=== PATIENT | male | born 1950 | race Caucasian/White ===

== ENCOUNTER 2018-06-21 13:28 | Outpatient (CLI) | payer BC ==
--- NOTE | 2018-06-21 13:50 | RAD ---
EXAM: 2 views of the right hip HISTORY: Bilateral hip pain COMPARISON: None FINDINGS: 2 views of the right hip shows no evidence of acute fracture or dislocation. No degenerativ e changes are seen. No soft tissue swelling is present. IMPRESSION: No evidence of acute osseous abnormality.
--- NOTE | 2018-06-21 13:50 | RAD ---
EXAM: 2 views of the left hip HISTORY: Bilateral hip pain COMPARISON: None FINDINGS: 2 views of the left hip shows no evidence of acute fracture or dislocation. No degenerative changes are seen. No soft tissue swelling is present. IMPRESSION: No evidence of acute osseous abnormality.
== END 2018-06-21 13:29 | disposition home or self-care (01) ==
LOC: BICRAD 13:28
PROVIDERS: ATTEND Internal Medicine
DX: M25.551 Pain in right hip (principal); M25.552 Pain in left hip; M19.90 Unspecified osteoarthritis, unspecified site

== ENCOUNTER 2018-06-29 09:22 | Inpatient (IN) | payer MEDICARE ==
--- NOTE | 2018-06-29 09:50 | CT ---
Exam: HEAD CT WITHOUT CONTRAST: HISTORY: Level 2 stroke alert. Left sided numbness, onset 10 a.m. yesterday. COMPARISON: 07-01-14 FINDINGS: Hemorrhage: No intraparenchymal hemorrhage or extra-axial hematoma. Brain parenchyma: Cortical linn-white matter differentiation is preserved. No mass effect or midline shift. Basilar cisterns are patent Ventricular system: Ventricles and sulci are patent and symmetric. Calvarium: Intact. Sinuses and mastoid air cells: Adequate aeration. IMPRESSION: No acute intracranial process. Results study discussed with Dr. Koch 06/29/2018 at 9:50 AM Code CR Transcribed Date/Time: 06/29/2018 10:05 AM
[2018-06-29 09:58] LABS: #Basophils 0.1 thou/uL (0.0-0.2); #Eosinphils 0.2 thou/uL (0.0-0.7); #Lymphocytes 1.5 thou/uL (1.20-3.40); #Monocytes 0.7 thou/uL (0.11-0.59); #Neutrophils 3.8 thou/uL (1.40-6.50); %Basophils 0.9 % (0.0-1.0); %Eosinophils 3.6 % (0.0-10.0); %Neutrophils 60.5 % (42.0-75.0); Hemoglobin 16.4 g/dL (14.0-18.0); Mean Corpuscular HGB CONC 32.9 g/dL (32.0-36.0); Mean Corpuscular Hemoglobin 30.1 pg (27.0-31.0); Mean Corpuscular Volume 91.4 fL (78.0-98.0); Mean Platelet Volume 9.5 fL (7.4-10.4); Platelet Count 164 thou/uL (130-400); RBC Distribution Width 12.5 % (11.5-14.5); Red Blood Cell (RBC) Count 5.46 mill/uL (4.70-6.10); White Blood Cell (WBC) Count 6.2 thou/uL (4.8-10.8)
[2018-06-29 10:04] LABS: PTT 27.8 SEC (22.9-36.1); Prothrombin Time 13.7 SEC (12.0-14.7)
[2018-06-29 10:19] LABS: ALT (SGPT) 45 U/L (8-55); AST (SGOT) 38 U/L (5-34); Albumin 4.2 g/dL (3.4-4.8); Alkaline Phosphatase 53 U/L (40-150); Anion Gap 14 mmol/L (10-20); BUN (Urea Nitrogen) 12 mg/dL (8.4-25.7); Calc. Creatinine Clearance 0 mL/min (70-130); Calcium 9.5 mg/dL (7.8-10.44); Carbon Dioxide 28 mmol/L (23-31); Chloride 102 mmol/L (98-107); Estimated GFR-MDRD 71; Globulin 2.7 g/dL (2.4-3.5); Glucose 159 mg/dL (80-115); Potassium 3.9 mmol/L (3.5-5.1); Protein, Total 6.9 g/dL (5.8-8.1); Sodium 140 mmol/L (136-145)
[2018-06-29] MEDS ORDERED: Aspirin Chewable 81 MG TAB ONE (10:57)
[2018-06-29] MEDS ORDERED: HumaLOG 300 UNITS/3 ML VIAL SC PRN (12:40)
[2018-06-29] MEDS ORDERED: Bisacodyl 5 MG TAB PO PRN (12:40)
[2018-06-29] MEDS ORDERED: Dextrose 50% Abboject 50 ML SYRINGE SLOW IVP PRN (12:40)
[2018-06-29] MEDS ORDERED: Dextrose 5% in Water 1,000 ML IV PRN (12:40)
[2018-06-29] MEDS ORDERED: Lorazepam 2 MG/ML VIAL SLOW IVP PRN (12:54)
--- NOTE | 2018-06-29 13:24 | HP ---
PRIMARY CARE PROVIDER: Dr. Claudia Shane. CHIEF COMPLAINT: Left-sided numbness. HISTORY OF PRESENT ILLNESS: Mr. Ibanez is a pleasant 67-year-old left-handed gentleman, who was seen at [facility] on June 292018. Yesterday around 10 a.m., he developed left-sided numbness. He reports numbness over both left upper and left lower extremities. He was unable to walk. He reports that his gait was shuffling, so that he did not fall. He tried writing and could not recognize his handwriting. He denies any change in his speech. 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 He denies any nausea or vomiting. He denies any chest pain, shortness of breath, fevers, or chills. REVIEW OF SYSTEMS: All other systems reviewed and found to be negative. PAST MEDICAL HISTORY: Diabetes mellitus, type 2; Mohan palsy; dyslipidemia; hypertension. SURGICAL HISTORY: Hemorrhoid surgery. SOCIAL HISTORY: The patient denies tobacco use, alcohol use, or recreational drug use. CODE STATUS: I discussed his code status. He is full code. FAMILY HISTORY: Significant for malignancy in his mother. No family history of cerebrovascular accident. ALLERGIES: NO KNOWN ALLERGIES. CURRENT MEDICATIONS: 1. Metoprolol succinate 200 mg at bedtime. 2. Metformin 500 mg two times a day. 3. Lasix 20 mg daily. 4. Lisinopril 40 mg daily. 5. Aspirin 81 mg daily. 6. Amlodipine 5 mg at bedtime. 7. Tamsulosin 0.4 mg at bedtime. PHYSICAL EXAMINATION: GENERAL: On examination, Mr. Ibanez is awake and alert, not in acute distress. VITAL SIGNS: Temperature is 99.3 degrees Fahrenheit, blood pressure 151/94, pulse 81, respiratory rate 17, and oxygen saturations 98% on room air. EYES: No scleral icterus, no conjunctival pallor. ENT: Moist mucosal membranes. No oropharyngeal erythema or exudates. NECK: Supple, nontender, trachea is midline. RESPIRATORY: Accessory muscles of breathing are not active. Chest wall movements are symmetric bilaterally. Lungs are clear to auscultation without wheeze, rhonchi, or crepitations. CARDIOVASCULAR: S1 and S2 are heard, regular. Peripheral pulses palpable. No carotid bruit. No pericardial rub. ABDOMEN: Soft, nontender, bowel sounds heard. NEUROLOGIC: Cranial nerves 2 through 12 are intact. He has diminished sensation over the left upper and lower extremities, normal sensation in the right upper and lower extremities. Power is 5/5 in all four extremities. Deep tendon reflexes are 2+. Plantar reflex downgoing on the right, equivocal on the left. MUSCULOSKELETAL: Power is 5/5 in all four extremities. SKIN: No rashes or subcutaneous nodules. LYMPHATIC: No cervical lymphadenopathy. PSYCHIATRIC: Normal mood, normal affect, the patient is oriented to person, place, and time. LABORATORY DATA: Mr. Ibanez's labs and investigations were reviewed. He has an unremarkable CBC, INR 1.0, slightly elevated AST of 38, otherwise unremarkable comprehensive metabolic profile. He also had noncontrast CT scan of the brain, which did not show any acute intracranial abnormality. ASSESSMENT AND PLAN: Mr. Ibanez is a pleasant 67-year-old gentleman, who was seen at [facility] on June 29, 2018. His problem list includes: 1. Left-sided numbness: Mr. Ibanez is presenting with symptoms suggestive of stroke. He is left-hand dominant. He will be admitted to the hospital for further workup including MRI brain, carotid Dopplers, and 2D echocardiogram. We will switch him to Aggrenox for now and await Neurology Service's opinion. 2. Diabetes mellitus, type 2: We will start Accu-Cheks and insulin sliding scale. 3. Dyslipidemia: We will continue statin. 4. Hypertension: We will monitor vital signs and titrate antihypertensives as needed. Many thanks for allowing me to participate in your patient's care. Please feel free to contact me with any questions or concerns. LEVEL OF RISK: Moderate. LEVEL OF COMPLEXITY: Moderate. Job ID: [id number] MTDD
[2018-06-29 13:28] LABS: Troponin I Less than 0.010 ng/mL (< 0.028)
--- NOTE | 2018-06-29 15:25 | ULT ---
BILATERAL CAROTID DUPLEX ULTRASOUND: HISTORY: CVA TECHNIQUE: Grayscale, color-flow and spectral Doppler ultrasound imaging of the extracranial carotid artery syst ems was performed bilaterally. FINDINGS: No significant plaque formation or intimal wall thickening is seen. The peak systolic velocity in the right ICA measures 53 cm/s. The peak systolic velocity in the left ICA measures 57 cm/s. Vertebral flow: antegrade, bilaterally. . IMPRESSION: No hemodynamically significant stenosis of Both ICAs.
[2018-06-29 16:03] LABS: Troponin I Less than 0.010 ng/mL (< 0.028)
[2018-06-29 18:05] VITALS: BMI 32.2
[2018-06-29] MEDS ORDERED: Naproxen 500 MG TAB PO PRN (19:12)
[2018-06-29] MEDS: Aggrenox 200-25mg CAP PO SCH (21:33)
[2018-06-29] MEDS: Atorvastatin Calcium 40 MG TAB PO SCH (21:38)
[2018-06-29] MEDS: Polyethylene Glycol 3350 17 GM Packet PO SCH (21:38)
[2018-06-30 05:17] LABS: #Basophils 0.1 thou/uL (0.0-0.2); #Eosinphils 0.2 thou/uL (0.0-0.7); #Lymphocytes 2.3 thou/uL (1.20-3.40); #Monocytes 0.9 thou/uL (0.11-0.59); #Neutrophils 4.2 thou/uL (1.40-6.50); %Eosinophils 2.9 % (0.0-10.0); %Lymphocytes 29.5 % (21.0-51.0); %Monocytes 12.1 % (0.0-10.0); %Neutrophils 54.4 % (42.0-75.0); Hemoglobin 15.6 g/dL (14.0-18.0); Mean Corpuscular HGB CONC 33.2 g/dL (32.0-36.0); Mean Corpuscular Hemoglobin 30.4 pg (27.0-31.0); Mean Corpuscular Volume 91.6 fL (78.0-98.0); Mean Platelet Volume 9.2 fL (7.4-10.4); Platelet Count 158 thou/uL (130-400); RBC Distribution Width 12.3 % (11.5-14.5); Red Blood Cell (RBC) Count 5.13 mill/uL (4.70-6.10); White Blood Cell (WBC) Count 7.8 thou/uL (4.8-10.8)
[2018-06-30 05:57] LABS: Anion Gap 11 mmol/L (10-20); BUN (Urea Nitrogen) 13 mg/dL (8.4-25.7); Calc. Creatinine Clearance 123 mL/min (70-130); Calcium 9.1 mg/dL (7.8-10.44); Carbon Dioxide 30 mmol/L (23-31); Cardiac Risk 5.7 (Less than 4.5); Chloride 103 mmol/L (98-107); Cholesterol 204 mg/dl (< 200 Desired); Estimated GFR-MDRD 77; Glucose 121 mg/dL (80-115); HDL Cholesterol 36 mg/dL (>60 Neg Risk); LDL Cholesterol, Calculated 138 mg/dL; Potassium 3.9 mmol/L (3.5-5.1); Sodium 140 mmol/L (136-145); Triglycerides 148 mg/dL (Less than 150)
[2018-06-30] MEDS ORDERED: ALPRAZolam 0.5 MG TAB PO PRN (08:14)
[2018-06-30] MEDS: Furosemide 40 MG TAB PO SCH (09:47)
[2018-06-30] MEDS: metFORMIN 500 MG TAB PO SCH ×2 (09:47→19:39)
[2018-06-30] MEDS: Aspirin 81 mg Enteric Coated Tablet PO SCH (09:47)
[2018-06-30] MEDS: Lisinopril 20 MG TAB PO SCH (09:47)
[2018-06-30] MEDS: Enoxaparin Sodium 40 MG/0.4 ML SYRINGE SC SCH (09:48)
[2018-06-30] MEDS: Amlodipine 5 MG TAB PO SCH (09:49)
[2018-06-30] MEDS: Aggrenox 200-25mg CAP PO SCH (09:50)
[2018-06-30] MEDS: Multivit, Chewable SF 1 TAB PO SCH (10:23)
--- NOTE | 2018-06-30 11:52 | MRI ---
EXAM: MRI Brain WO Con PROVIDED CLINICAL HISTORY: Decreased strength in left arm and leg. Left-sided facial droop. COMPARISON: CT head on 06/29/2018 FINDINGS: There is a T2-weighted signal abnormality seen within the superior aspect of the right basal ganglia which does demonstrate restricted diffusion and is compatible with an acute lacunar infarction. No additional acute infarction is seen. There are ill-defined signal abnormalities within the left cerebellar hemisphere, but this has the ap pearance of artifact related to phase encoding secondary to pulsations within the venous sinus. No additional signal abnormalities are appreciated. Mild cerebral and cerebellar volume loss are present . The ventricular system is normal in size, shape, and position for the degree of sulcal atrophy. The septum pellucidum and third ventricle are in the midline. The right vertebral artery is smaller in caliber than the left vertebral artery and may terminate in PICA. There is mass effect on the midbrain secondary to tortuosity of the distal left vertebral artery. Appropriate flow voids are otherwise demonstrated at the base of the brain. The orbits, paranasal sinuses, and skull base demonstrate a normal MRI appearance. IMPRESSION: Acute lacunar infarction superior aspect right basal ganglia.
--- NOTE | 2018-06-30 12:11 | MRI ---
MRI CERVICAL SPINE WITHOUT CONTRAST: INDICATIONS: Left arm weakness. TECHNIQUE: Multiplanar, multisequential imaging of the cervical spine obtained. FINDINGS: The cervical vertebrae maintain height and alignment. Moderate degenerative changes are noted. Ante rior osteophytes are prominent throughout the cervical spine, most pronounced at the C4, C5, C6, and C7 levels. The disk space narrowing is most prominent at C5-C6 and C6-C7. At C2-C3, no significant abnormality. At C3-C4, mild posterior disk bulge and spondylosis effaces the anterior subarachnoid space and abuts the cord. Mild foraminal encroachment bilaterally due to facet and uncinate hypertrophy. At C4-C5, slight anterolisthesis. Posterior disk bulge and spondylosis mildly efface the anterior willams barachnoid space. Right foraminal stenosis due to facet and uncinate hypertrophy. At C5-C6, mild disk bulge and spondylosis flatten the thecal sac and mildly efface the anterior subar achnoid space. Mild left foraminal narrowing due to facet and uncinate hypertrophy. At C6-C7, mild disk bulge and spondylosis flatten the thecal sac and mildly efface the anterior subar achnoid space. No evidence of significant foraminal stenosis or encroachment. At C7-T1, mild disk bulge and spondylosis. The anterior subarachnoid space is well maintained. The foramina appear patent. Cervical cord signal appears normal. IMPRESSION: There are degenerative changes of the cervical spine, as described above. Posterior disk bulge and s pondylosis efface the anterior subarachnoid space from C3 through C7, as described. POS: [facility]
--- NOTE | 2018-06-30 12:13 | PDOC.PN ---
- Subjective Encounter Start Date: 06/30/18 Encounter Start Time: 08:15 CC; LUE NUMBNESS AND WEAKNESS HPI; 67 MALE WITH HTN DM HLD WHO COMES FOR NUMBNESS AND WEAKNESS OF LEFT UPPER EXTREMITY. SUBJECTIVE; PATIENT SEE AND EVAL. HE REFERS NO FULL RECOVERY OF LEFT HAND MOTOR FUNCTION. PER NURSE, NO OTHER ACUTE EVENTS ROS; ALL SYSTEMS ARE REVIEWED AND NEGATIVE EXCEPT FOR THE ONES MENTIONED ABOVE. - Objective Resuscitation Status - Order Detail: 06/29/18 12:40 Resuscitation Status Routine Resuscitation Status: FULL: Full Resuscitation Discussed with: patient MAR Reviewed: Yes Vital Signs & Weight: Vital Signs (12 hours) Temp Pulse Resp BP BP Pulse Ox 06/30/18 11:57 98.7 F 80 18 159/113 H 93 L 06/30/18 09:49 77 149/93 H 06/30/18 09:47 142/93 H 06/30/18 08:45 97 06/30/18 08:00 98.0 F 77 16 142/93 H 97 06/30/18 04:00 98.1 F 79 16 140/94 H 95 Weight Weight 257 lb 15.053 oz I&O: 06/29/18 06/30/18 07/01/18 06:59 06:59 06:59 Intake Total 800 Balance 800 Result Diagrams: 06/30/18 05:04 06/30/18 05:03 Additional Labs: Accuchecks 06/30/18 06/29/18 10:47 20:46 POC Glucose 140 H 90 Radiology Reviewed by me: Yes EKG Reviewed by me: Yes Phys Exam - Physical Examination HEENT: PERRLA, moist MMs, sclera anicteric, oral pharynx no lesions Neck: no nodes, supple, full ROM Respiratory: no wheezing, no rales, no rhonchi, clear to auscultation bilateral Cardiovascular: RRR, no significant murmur, no rub Gastrointestinal: soft, non-tender, no distention, positive bowel sounds Musculoskeletal: no edema, pulses present Neurological: normal sensation, moves all 4 limbs LEFT HAND FINE MOTOR FUNCTION IS IMPAIRED. Psychiatric: normal affect, A&O x 3 Skin: no rash, normal turgor, cap refill <2 seconds Dx/Plan (1) Ischemic stroke Code(s): I63.9 - CEREBRAL INFARCTION, UNSPECIFIED Status: Acute Plan: RIGHT BASAL GANGLIA ACUTE ISCHEMIC STROKE WITH LUE WEAKNESS. CONTINUE STROKE PROTOCOL. LEFT SIDE DOMINANT. CONTINUE ASA AND AGGRENOX. (2) Essential hypertension Code(s): I10 - ESSENTIAL (PRIMARY) HYPERTENSION Status: Chronic Plan: TITRATE MEDS TO GOAL (3) DM type 2 (diabetes mellitus, type 2) Status: Chronic (4) Dyslipidemia Code(s): E78.5 - HYPERLIPIDEMIA, UNSPECIFIED Status: Chronic Plan: CONTINUE STATIN (5) Obesity (BMI 30-39.9) Code(s): E66.9 - OBESITY, UNSPECIFIED Status: Chronic Plan: WEIGHT LOSS RECOMMENDED - Plan cont current plan of care CONTINUE STROKE PROTOCOL. LEFT HAND DOMINANT. CONTINUE AGGRENOX AND ASA DUE TO PRIOR ASA ONLY. BP CONTROL, GLUCOSE CONTROL, STATIN. CODE; FULL CORE; LOVENOX DISP; STROKE UNIT PROG; FAIR CLINICAL STATUS; GUARDED EXPECTED DISCHARGE; IN THE NEXT 24 TO 48 HOURS TOTAL TIME SPENT; 34 MINUTES DATE OF SERVICE; 06/30/2018
[2018-06-30] MEDS: Acetaminophen 325 MG TAB PO PRN (13:48)
[2018-06-30] MEDS ORDERED: Clopidogrel Bisulfate 75 MG TAB PO SCH (16:00)
[2018-07-01] MEDS: Atorvastatin Calcium 40 MG TAB PO SCH ×2 (01:37→21:13)
[2018-07-01] MEDS: Aggrenox 200-25mg CAP PO SCH ×3 (01:37→21:13)
[2018-07-01] MEDS: Polyethylene Glycol 3350 17 GM Packet PO SCH ×2 (01:37→21:12)
[2018-07-01 04:55] LABS: Hemoglobin 16.2 g/dL (14.0-18.0); Mean Corpuscular HGB CONC 32.7 g/dL (32.0-36.0); Mean Corpuscular Hemoglobin 29.9 pg (27.0-31.0); Mean Corpuscular Volume 91.4 fL (78.0-98.0); Mean Platelet Volume 9.3 fL (7.4-10.4); Platelet Count 169 thou/uL (130-400); RBC Distribution Width 12.5 % (11.5-14.5); Red Blood Cell (RBC) Count 5.42 mill/uL (4.70-6.10); White Blood Cell (WBC) Count 7.7 thou/uL (4.8-10.8)
[2018-07-01 05:23] LABS: Anion Gap 15 mmol/L (10-20); BUN (Urea Nitrogen) 14 mg/dL (8.4-25.7); Calc. Creatinine Clearance 118 mL/min (70-130); Calcium 9.5 mg/dL (7.8-10.44); Carbon Dioxide 27 mmol/L (23-31); Chloride 102 mmol/L (98-107); Estimated GFR-MDRD 73; Glucose 138 mg/dL (80-115); Potassium 3.9 mmol/L (3.5-5.1); Sodium 140 mmol/L (136-145)
[2018-07-01] MEDS: Acetaminophen 325 MG TAB PO PRN ×2 (08:34→13:08)
[2018-07-01] MEDS: Furosemide 40 MG TAB PO SCH (08:34)
[2018-07-01] MEDS: Multivit, Chewable SF 1 TAB PO SCH (08:34)
[2018-07-01] MEDS: Clopidogrel Bisulfate 75 MG TAB PO SCH (08:35)
[2018-07-01] MEDS: Aspirin 81 mg Enteric Coated Tablet PO SCH (08:35)
[2018-07-01] MEDS: metFORMIN 500 MG TAB PO SCH ×2 (08:35→17:48)
[2018-07-01] MEDS: Amlodipine 5 MG TAB PO SCH (08:35)
[2018-07-01] MEDS: Lisinopril 20 MG TAB PO SCH (08:35)
[2018-07-01] MEDS: Enoxaparin Sodium 40 MG/0.4 ML SYRINGE SC SCH (08:36)
[2018-07-01] MEDS ORDERED: Clopidogrel Bisulfate 75 MG TAB PO SCH (09:00)
--- NOTE | 2018-07-01 18:44 | PDOC.EVN ---
Event Note - Event Note Event Note: Patient does not feel ready to go home. Family members disagree with disposition because the patient has stairs in the house. They request evaluation for inpatient rehabilitation. Discharge was discontinued.
--- NOTE | 2018-07-01 18:56 | DIS ---
DATE OF ADMISSION: 06/29/2018 DATE OF DISCHARGE: 07/01/2018 ADMITTING PHYSICIAN: Dr. Dallas. DISCHARGING PHYSICIAN: Dr. Treviño. PRIMARY CARE PHYSICIAN: Dr. Claudia Shane. ADMITTING DIAGNOSES: 1. Left upper extremity numbness and weakness. 2. Diabetes mellitus type 2. 3. Dyslipidemia. 4. Hypertension. DISCHARGE DIAGNOSES: 1. Acute right basal ganglia lacunar stroke with left upper extremity weakness. 2. Essential hypertension. 3. Diabetes mellitus type 2. 4. Dyslipidemia. 5. Obesity. CONSULTS: None. PROCEDURES: None. SPECIAL IMAGING: Carotid Doppler ultrasound. MRI of the brain and cervical spine. HOSPITAL COURSE: Mr. Black is a 67-year-old male with history of hypertension, hyperlipidemia, and diabetes mellitus type 2, who came to the emergency department for acute onset of left-sided numbness and weakness. He is left-sided dominant. He was admitted for inpatient care of clinical stroke. This was confirmed by MRI showing a right basal ganglia lacunar stroke. He was previously taking aspirin for which he was considered failure to aspirin for primary prevention of stroke. He was given Aggrenox. The patient was evaluated by Physical Therapy and Occupational Therapy. He will be referred to Occupational Therapy 3 times a week for the next 3 to 4 weeks. He is stable for discharge home today. PHYSICAL EXAMINATION: VITAL SIGNS: Blood pressure 177/98 (will be repeated and treated before discharge), pulse 75, respirations 16, oxygen saturation 100% on room air, temperature 97.8 Fahrenheit. GENERAL: He appears in no distress. He is awake, alert, oriented x3. HEAD AND NECK: Pupils are equal, reactive to light. Extraocular muscles intact. Mucous membranes are moist. Neck is supple. CARDIOVASCULAR: Rhythm and rate are regular. No audible murmurs, rubs, or gallops. PULMONARY: Clear to auscultation bilaterally. No wheezes, rhonchi, or crackles. ABDOMEN: Soft, nontender, nondistended, positive bowel sounds. EXTREMITIES: No palpable edema. Pulses are symmetric. Range of motion is intact. SKIN: Normal moist and color. NEUROLOGIC: Cranial nerves 2 through 12 are grossly intact. Deep tendon reflexes are normoreflexic. Muscle tone is normal. 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 LABORATORY ABNORMALITIES: CBC is normal. Chemistry normal except for glucose 138. DISCHARGE DISPOSITION: Home with self-care. DISCHARGE CONDITION: Stable. DISCHARGE DIET: Cardiac and diabetic diet as tolerated. DISCHARGE ACTIVITY: Increased activity as tolerated and avoid falls. DISCHARGE MEDICATIONS: See medical reconciliation for details. DISCHARGE FOLLOWUP: With primary care physician in 1-2 weeks. DISCHARGE INSTRUCTIONS: The patient was instructed to return to the emergency department if symptoms worsen. Take his medications as directed and not to miss any appointments. TIME OF DISCHARGE AND PLANNIN minutes. Job ID: [id number]
--- NOTE | 2018-07-01 23:49 | CON ---
DATE OF CONSULTATION: 07/01/2018 CONSULTING PHYSICIAN: Hospitalist Service. IMPRESSION: 1. Right basal ganglia stroke resulting in left-sided dysmetria. 2. Hypertension. 3. Diabetes. 4. Aspirin failure. PLAN: 1. Aggrenox one twice a day. 2. Outpatient physical therapy. HISTORY OF PRESENT ILLNESS: Mr. Ibanez is a 67-year-old man, who presented with left-sided weakness. Initial CT was unremarkable. Lab work was also negative. He was admitted for further evaluation and had an MRI of the brain showing a right basal ganglia lacunar infarction. His carotid ultrasound was clear bilaterally. His echocardiogram is pending. His symptoms have improved a bit. He can walk, but tends to drag the left leg. He has never had anything like this before. PAST MEDICAL HISTORY: As listed above. ALLERGIES: CODEINE. FAMILY HISTORY: Noncontributory. SOCIAL HISTORY: No tobacco or alcohol use. REVIEW OF SYSTEMS: A 10-system review of systems is otherwise negative. PHYSICAL EXAMINATION: GENERAL: He is a well-nourished, middle-aged man, in no acute distress. VITAL SIGNS: Have been stable. He is afebrile. HEENT: Pupils are equal and reactive. Conjunctivae clear. Oropharynx clear. NECK: Supple. EXTREMITIES: No cyanosis or edema. NEUROLOGIC: He is alert and appropriate. His speech is fluent and clear. Cranial nerves are intact. Motor exam showed good antigravity strength bilaterally. His cerebellar testing showed dysmetria on [id number] testing on the left. He can walk with some minor difficulty. Sensations intact to touch. SUMMARY: He is a gentleman with vascular risk factors with a lacunar infarction. Agree with continuing antiplatelet therapy. He appears to be doing well enough to manage with outpatient therapy. Job ID: [id number]
[2018-07-02] MEDS: Acetaminophen 325 MG TAB PO PRN ×2 (04:08→17:05)
--- NOTE | 2018-07-02 09:12 | PRG ---
DATE OF SERVICE: 07/02/2018 SUBJECTIVE: The patient is seen and examined at the bedside. He does not have much appetite. The discharge was postponed since he needs to go to the rehab. OBJECTIVE: VITAL SIGNS: Blood pressure 139/93, pulse is 88, temperature 97.4, respirations 18, and O2 saturation 100% on room air. HEENT: His head is atraumatic and normocephalic. Eyes are PERRLA. Sclerae are nonicteric. There is a left facial droop. LUNGS: Clear. HEART: S1 and S2 normal. ABDOMEN: Soft, nontender, and nondistended. EXTREMITIES: No clubbing, cyanosis, or edema. NEUROLOGICAL: He has left-sided weakness, 4/5 in the left upper and left lower extremity. He follows my commands. He is alert and oriented x4. LABORATORY DATA: None. IMPRESSION: 1. Acute right basal ganglia lacunar stroke with left upper extremity weakness and some left lower extremity weakness. 2. Essential hypertension. 3. Diabetes mellitus, type 2. 4. Dyslipidemia. 5. Obesity. PLAN: Continue current regimen. Continue PT. Discharged to the rehab as soon as place is arranged. Job ID: [id number]
[2018-07-02] MEDS: Enoxaparin Sodium 40 MG/0.4 ML SYRINGE SC SCH (10:12)
[2018-07-02] MEDS: Lisinopril 20 MG TAB PO SCH (10:13)
[2018-07-02] MEDS: Amlodipine 5 MG TAB PO SCH (10:15)
[2018-07-02] MEDS: metFORMIN 500 MG TAB PO SCH ×2 (10:16→17:05)
[2018-07-02] MEDS: Clopidogrel Bisulfate 75 MG TAB PO SCH (10:16)
[2018-07-02] MEDS: Aggrenox 200-25mg CAP PO SCH ×2 (10:16→21:22)
[2018-07-02] MEDS: Furosemide 40 MG TAB PO SCH (10:16)
[2018-07-02] MEDS: Aspirin 81 mg Enteric Coated Tablet PO SCH (10:16)
[2018-07-02] MEDS: Multivit, Chewable SF 1 TAB PO SCH (10:16)
[2018-07-02] MEDS: Polyethylene Glycol 3350 17 GM Packet PO SCH (21:22)
[2018-07-02] MEDS: Atorvastatin Calcium 40 MG TAB PO SCH (21:22)
[2018-07-03] MEDS: Aspirin 81 mg Enteric Coated Tablet PO SCH (10:05)
[2018-07-03] MEDS: Lisinopril 20 MG TAB PO SCH (10:05)
[2018-07-03] MEDS: metFORMIN 500 MG TAB PO SCH ×2 (10:05→18:12)
[2018-07-03] MEDS: Aggrenox 200-25mg CAP PO SCH ×2 (10:06→20:48)
[2018-07-03] MEDS: Furosemide 40 MG TAB PO SCH (10:06)
[2018-07-03] MEDS: Enoxaparin Sodium 40 MG/0.4 ML SYRINGE SC SCH (10:06)
[2018-07-03] MEDS: Amlodipine 5 MG TAB PO SCH ×2 (10:06→20:48)
[2018-07-03] MEDS: Clopidogrel Bisulfate 75 MG TAB PO SCH (10:06)
[2018-07-03] MEDS: Multivit, Chewable SF 1 TAB PO SCH (10:07)
--- NOTE | 2018-07-03 17:51 | PRG ---
DATE OF SERVICE: 07/03/2018 SUBJECTIVE: The patient is seen and examined at the bedside. There was no any unexpected events overnight. He is doing quite well. His appetite is fair. He is participating in physical therapy sessions. OBJECTIVE: VITAL SIGNS: Blood pressure is 145/99, pulse is 77, temperature is 98.6, respiratory rate is 18, O2 saturation is 96% on room air. HEENT: His head is atraumatic and normocephalic. Eyes are PERRLA. Sclerae are nonicteric. He has left facial droop. NECK: Supple. LUNGS: Clear. HEART: S1 and S2 normal. No S3. No S4. No any murmur. ABDOMEN: Soft, nontender, and nondistended. EXTREMITIES: No clubbing, cyanosis, or edema. NEUROLOGIC: He follows my commands. He moves his all 4 extremities. There is 4/5 weakness in the left upper and left lower extremity. His mental function is within normal limits. LABORATORY DATA: None. IMPRESSION: 1. Acute right basal ganglia lacunar stroke with left upper extremity weakness and some of the left lower extremity weakness as well and facial droop. 2. Essential hypertension. 3. Diabetes mellitus type 2. 4. Dyslipidemia. 5. Obesity. PLAN: We are waiting for Rehab approval. We will continue PT and continue current regimen. Job ID: [id number]
[2018-07-03] MEDS: Atorvastatin Calcium 40 MG TAB PO SCH (20:49)
[2018-07-03] MEDS: Polyethylene Glycol 3350 17 GM Packet PO SCH (20:51)
[2018-07-04] MEDS: Enoxaparin Sodium 40 MG/0.4 ML SYRINGE SC SCH (08:48)
[2018-07-04] MEDS: metFORMIN 500 MG TAB PO SCH ×2 (08:49→16:47)
[2018-07-04] MEDS: Multivit, Chewable SF 1 TAB PO SCH (08:49)
[2018-07-04] MEDS: Lisinopril 20 MG TAB PO SCH (08:49)
[2018-07-04] MEDS: Amlodipine 5 MG TAB PO SCH ×2 (08:49→21:27)
[2018-07-04] MEDS: Furosemide 40 MG TAB PO SCH (08:50)
[2018-07-04] MEDS: Aggrenox 200-25mg CAP PO SCH ×2 (08:50→21:27)
--- NOTE | 2018-07-04 14:23 | PDOC.PN ---
- Subjective Encounter Start Date: 07/04/18 Encounter Start Time: 09:30 Patient seen and examined for Acute CVA. Left sided strength improving. No new focal deficits. No new complaints. No overnight events - Objective Resuscitation Status - Order Detail: 06/29/18 12:40 Resuscitation Status Routine Resuscitation Status: FULL: Full Resuscitation Discussed with: patient MAR Reviewed: Yes Vital Signs & Weight: Vital Signs (12 hours) Temp Pulse Resp BP BP Pulse Ox 07/04/18 12:00 96 F L 73 17 137/90 96 07/04/18 08:49 66 155/95 H 07/04/18 08:00 92 L 07/04/18 07:58 97.8 F 68 14 155/95 H 92 L 07/04/18 04:00 97.8 F 74 16 144/89 H 96 Weight Weight 257 lb 15.053 oz I&O: 07/03/18 07/04/18 07/05/18 06:59 06:59 06:59 Intake Total 237 1400 Output Total 9082 3200 799 Balance -1538 -1300 -850 Result Diagrams: 07/01/18 04:27 07/01/18 04:27 Additional Labs: Accuchecks 07/04/18 07/03/18 07/03/18 06:08 20:02 17:23 POC Glucose 114 H 124 H 153 H 07/03/18 07/03/18 10:44 06:00 POC Glucose 124 H 126 H EKG Reviewed by me: Yes (Tele SR) Phys Exam - Physical Examination Constitutional: NAD Respiratory: no wheezing, no rhonchi Cardiovascular: RRR, no rub Gastrointestinal: soft, non-tender, positive bowel sounds Musculoskeletal: no edema Neurological: moves all 4 limbs Left sided weakness - improving Dx/Plan - Plan DVT proph w/SCDs IMPRESSION: 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 HTN HLD DM2 Obesity BMI 32.2 h/o [place] palsy PLAN: Start Aggrenox per Neuro recommendation DC ASA/Plavix Cont current meds including Toprol/Amlodipine DC Acuchecks DC Lovenox DC to Rehab when accepted Cont to monitor Review of Systems - Review of Systems Respiratory: negative: Cough, Dry, Shortness of Breath, Hemoptysis, SOB with Excertion, Pleuritic Pain, Sputum, Wheezing Cardiovascular: negative: chest pain, palpitations, orthopnea, paroxysmal nocturnal dyspnea, edema, light headedness, other Gastrointestinal: negative: Nausea, Vomiting, Abdominal Pain, Diarrhea, Constipation, Melena, Hematochezia, Other - Medications/Allergies Allergies/Adverse Reactions: Allergies Allergy/AdvReac Type Severity Reaction Status Date / Time No Known Allergies Allergy Verified 06/29/18 18:08 Medications: Current Medications Acetaminophen (Tylenol) 650 mg PO Q4H PRN PRN Reason: Headache/Fever/Mild Pain (1-3) Last Admin: 07/02/18 17:05 Dose: 650 mg Amlodipine Besylate (Norvasc) 5 mg PO BID [facility] Last Admin: 07/04/18 08:49 Dose: 5 mg Atorvastatin Calcium (Lipitor) 40 mg PO HS [facility] Last Admin: 07/03/18 20:49 Dose: 40 mg Bisacodyl (Dulcolax) 10 mg PO DAILYPRN PRN PRN Reason: Constipation Last Admin: 07/01/18 13:08 Dose: 10 mg Dextrose/Water (Dextrose 50%) 25 gm SLOW IVP PRN PRN PRN Reason: Hypoglycemia Diphenhydramine HCl (Benadryl) 25 mg PO Q6HR PRN PRN Reason: Allergies Dipyridamole/Aspirin (Aggrenox) 1 cap PO BID [facility] Last Admin: 07/04/18 08:50 Dose: 1 cap Enoxaparin Sodium (Lovenox) 40 mg SC 0900 [facility] Last Admin: 07/04/18 08:48 Dose: 40 mg Furosemide (Lasix) 40 mg PO DAILY [facility] Last Admin: 07/04/18 08:50 Dose: 40 mg Glucagon (Glucagon) 1 mg IM PRN PRN PRN Reason: Hypoglycemia Dextrose/Water (D5w) 1,000 mls @ 0 mls/hr IV .Q0M PRN PRN Reason: Hypoglycemia Insulin Human Lispro (Humalog) 0 units SC .MILD SLIDING SCALE PRN PRN Reason: Mild Correctional Scale Lisinopril (Zestril) 40 mg PO DAILY [facility] Last Admin: 07/04/18 08:49 Dose: 40 mg Metformin HCl (Glucophage) 500 mg PO BID[facility] Last Admin: 07/04/18 08:49 Dose: 500 mg Metoprolol Succinate (Toprol Xl) [address] [facility] Last Admin: 07/03/18 20:48 Dose: 200 mg Multivitamins (Multivit, Chewable Sf) 1 tab PO DAILY [facility] Last Admin: 07/04/18 08:49 Dose: 1 tab Naproxen (Naprosyn) 250 mg PO BIDPRN PRN PRN Reason: Mild Pain (1-3) Polyethylene Glycol (Miralax) 17 gm PO HS [facility] Last Admin: 07/03/18 20:51 Dose: Not Given Sodium Chloride (Flush - Normal Saline) 10 ml IVF PRN PRN PRN Reason: Saline Flush
[2018-07-04] MEDS: Acetaminophen 325 MG TAB PO PRN (15:16)
[2018-07-04] MEDS: Atorvastatin Calcium 40 MG TAB PO SCH (21:26)
[2018-07-04] MEDS: Polyethylene Glycol 3350 17 GM Packet PO SCH (21:28)
[2018-07-05] MEDS: Furosemide 40 MG TAB PO SCH (09:20)
[2018-07-05] MEDS: Lisinopril 20 MG TAB PO SCH (09:20)
[2018-07-05] MEDS: metFORMIN 500 MG TAB PO SCH ×2 (09:20→17:52)
[2018-07-05] MEDS: Aggrenox 200-25mg CAP PO SCH ×2 (09:20→22:12)
[2018-07-05] MEDS: Multivit, Chewable SF 1 TAB PO SCH (09:21)
[2018-07-05] MEDS: Amlodipine 5 MG TAB PO SCH ×2 (09:21→22:13)
--- NOTE | 2018-07-05 14:54 | PDOC.PN ---
- Subjective Encounter Start Date: 07/05/18 Encounter Start Time: 11:00 Patient seen and examined for Acute CVA. No new focal deficits. No new complaints. No overnight events - Objective Resuscitation Status - Order Detail: 06/29/18 12:40 Resuscitation Status Routine Resuscitation Status: FULL: Full Resuscitation Discussed with: patient MAR Reviewed: Yes Vital Signs & Weight: Vital Signs (12 hours) Temp Pulse Pulse Pulse Resp BP BP 07/05/18 11:55 97.9 F 73 12 07/05/18 09:30 07/05/18 09:21 77 135/89 07/05/18 09:20 135/89 07/05/18 08:37 77 78 135/89 07/05/18 07:54 97.9 F 77 16 07/05/18 04:00 98.1 F 81 16 BP BP Pulse Ox 07/05/18 11:55 147/85 H 98 07/05/18 09:30 92 L 07/05/18 09:21 07/05/18 09:20 07/05/18 08:37 137/85 07/05/18 07:54 139/85 92 L 07/05/18 04:00 134/89 97 Weight Weight 257 lb 15.053 oz I&O: 07/04/18 07/05/18 07/06/18 06:59 06:59 06:59 Intake Total 1400 2370 420 Output Total 2700 2485 Balance -1300 -115 420 Result Diagrams: 07/01/18 04:27 07/01/18 04:27 EKG Reviewed by me: Yes (Tele SR) Phys Exam - Physical Examination Constitutional: NAD Respiratory: no wheezing, no rhonchi Cardiovascular: RRR, no rub Gastrointestinal: soft, non-tender, positive bowel sounds Musculoskeletal: no edema Neurological: moves all 4 limbs Left sided weakness improving Dx/Plan - Plan DVT proph w/lovenox, DVT proph w/SCDs IMPRESSION: 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 HTN HLD DM2 Obesity BMI 32.2 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 PLAN: Cont Aggrenox Cont current meds including Toprol/Amlodipine DC to Rehab when accepted Stable for dc Review of Systems - Review of Systems Respiratory: negative: Cough, Dry, Shortness of Breath, Hemoptysis, SOB with Excertion, Pleuritic Pain, Sputum, Wheezing Cardiovascular: negative: chest pain, palpitations, orthopnea, paroxysmal nocturnal dyspnea, edema, light headedness, other - Medications/Allergies Allergies/Adverse Reactions: Allergies Allergy/AdvReac Type Severity Reaction Status Date / Time No Known Allergies Allergy Verified 06/29/18 18:08 Medications: Current Medications Acetaminophen (Tylenol) 650 mg PO Q4H PRN PRN Reason: Headache/Fever/Mild Pain (1-3) Last Admin: 07/04/18 15:16 Dose: 650 mg Amlodipine Besylate (Norvasc) 5 mg PO BID [facility] Last Admin: 07/05/18 09:21 Dose: 5 mg Atorvastatin Calcium (Lipitor) 40 mg PO HS [facility] Last Admin: 07/04/18 21:26 Dose: 40 mg Bisacodyl (Dulcolax) 10 mg PO DAILYPRN PRN PRN Reason: Constipation Last Admin: 07/01/18 13:08 Dose: 10 mg Dextrose/Water (Dextrose 50%) 25 gm SLOW IVP PRN PRN PRN Reason: Hypoglycemia Diphenhydramine HCl (Benadryl) 25 mg PO Q6HR PRN PRN Reason: Allergies Dipyridamole/Aspirin (Aggrenox) 1 cap PO BID [facility] Last Admin: 07/05/18 09:20 Dose: 1 cap Furosemide (Lasix) 40 mg PO DAILY [facility] Last Admin: 07/05/18 09:20 Dose: 40 mg Glucagon (Glucagon) 1 mg IM PRN PRN PRN Reason: Hypoglycemia Dextrose/Water (D5w) 1,000 mls @ 0 mls/hr IV .Q0M PRN PRN Reason: Hypoglycemia Lisinopril (Zestril) 40 mg PO DAILY [facility] Last Admin: 07/05/18 09:20 Dose: 40 mg Metformin HCl (Glucophage) 500 mg PO BID-[facility] Last Admin: 07/05/18 09:20 Dose: 500 mg Metoprolol Succinate (Toprol Xl) 200 mg PO [facility] Last Admin: 07/04/18 21:26 Dose: 200 mg Multivitamins (Multivit, Chewable Sf) 1 tab PO DAILY [facility] Last Admin: 07/05/18 09:21 Dose: 1 tab Polyethylene Glycol (Miralax) 17 gm PO HS [facility] Last Admin: 07/04/18 21:28 Dose: Not Given Sodium Chloride (Flush - Normal Saline) 10 ml IVF PRN PRN PRN Reason: Saline Flush
[2018-07-05] MEDS: Atorvastatin Calcium 40 MG TAB PO SCH (22:13)
[2018-07-05] MEDS: Polyethylene Glycol 3350 17 GM Packet PO SCH (22:14)
[2018-07-06] MEDS: metFORMIN 500 MG TAB PO SCH ×2 (08:14→18:46)
[2018-07-06] MEDS: Enoxaparin Sodium 40 MG/0.4 ML SYRINGE SC SCH (08:14)
[2018-07-06] MEDS: Aggrenox 200-25mg CAP PO SCH ×2 (08:14→21:16)
[2018-07-06] MEDS: Amlodipine 5 MG TAB PO SCH ×2 (08:15→21:17)
[2018-07-06] MEDS: Lisinopril 20 MG TAB PO SCH (08:16)
[2018-07-06] MEDS: Furosemide 40 MG TAB PO SCH (08:16)
[2018-07-06] MEDS: Multivit, Chewable SF 1 TAB PO SCH (08:22)
--- NOTE | 2018-07-06 18:31 | PDOC.PN ---
- Subjective Encounter Start Date: 07/06/18 Encounter Start Time: 14:00 Patient seen and examined for Acute CVA. No CP/SOB or new focal deficits. No new complaints. No overnight events - Objective Resuscitation Status - Order Detail: 06/29/18 12:40 Resuscitation Status Routine Resuscitation Status: FULL: Full Resuscitation Discussed with: patient MAR Reviewed: Yes Vital Signs & Weight: Vital Signs (12 hours) Temp Pulse Pulse Pulse Resp BP BP 07/06/18 15:39 97.3 F L 88 16 07/06/18 15:00 07/06/18 14:25 88 81 148/84 H 07/06/18 12:00 97.7 F 87 20 07/06/18 08:37 80 73 137/85 07/06/18 08:16 126/87 07/06/18 08:15 73 126/87 07/06/18 08:00 07/06/18 07:51 97.7 F 73 12 BP BP Pulse Ox 07/06/18 15:39 120/82 97 07/06/18 15:00 148/84 H 07/06/18 14:25 150/85 H 07/06/18 12:00 171/97 H 98 07/06/18 08:37 151/88 H 07/06/18 08:16 07/06/18 08:15 07/06/18 08:00 93 L 07/06/18 07:51 126/87 93 L Weight Weight 257 lb 15.053 oz I&O: 07/05/18 07/06/18 07/07/18 06:59 06:59 06:59 Intake Total 2370 1770 Output Total 2485 1670 Balance -115 100 Result Diagrams: 07/01/18 04:27 07/01/18 04:27 Phys Exam - Physical Examination Constitutional: NAD Neurological: moves all 4 limbs Psychiatric: A&O x 3 Dx/Plan - Plan DVT proph w/lovenox, DVT proph w/SCDs IMPRESSION: 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 HTN HLD DM2 Obesity BMI 32.2 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 PLAN: Cont Aggrenox Cont Toprol/Amlodipine Stable for dc Pending insurance approval CBC/BMP in AM Review of Systems - Review of Systems Respiratory: negative: Cough, Dry, Shortness of Breath, Hemoptysis, SOB with Excertion, Pleuritic Pain, Sputum, Wheezing Cardiovascular: negative: chest pain, palpitations, orthopnea, paroxysmal nocturnal dyspnea, edema, light headedness, other - Medications/Allergies Allergies/Adverse Reactions: Allergies Allergy/AdvReac Type Severity Reaction Status Date / Time No Known Allergies Allergy Verified 06/29/18 18:08 Medications: Current Medications Acetaminophen (Tylenol) 650 mg PO Q4H PRN PRN Reason: Headache/Fever/Mild Pain (1-3) Last Admin: 07/04/18 15:16 Dose: 650 mg Amlodipine Besylate (Norvasc) 5 mg PO BID [facility] Last Admin: 07/06/18 08:15 Dose: 5 mg Atorvastatin Calcium (Lipitor) 40 mg PO HS [facility] Last Admin: 07/05/18 22:13 Dose: 40 mg Bisacodyl (Dulcolax) 10 mg PO DAILYPRN PRN PRN Reason: Constipation Last Admin: 07/01/18 13:08 Dose: 10 mg Dextrose/Water (Dextrose 50%) 25 gm SLOW IVP PRN PRN PRN Reason: Hypoglycemia Diphenhydramine HCl (Benadryl) 25 mg PO Q6HR PRN PRN Reason: Allergies Dipyridamole/Aspirin (Aggrenox) 1 cap PO BID [facility] Last Admin: 07/06/18 08:14 Dose: 1 cap Enoxaparin Sodium (Lovenox) 40 mg SC 0900 [facility] Last Admin: 07/06/18 08:14 Dose: 40 mg Furosemide (Lasix) 40 mg PO DAILY [facility] Last Admin: 07/06/18 08:16 Dose: 40 mg Glucagon (Glucagon) 1 mg IM PRN PRN PRN Reason: Hypoglycemia Dextrose/Water (D5w) 1,000 mls @ 0 mls/hr IV .Q0M PRN PRN Reason: Hypoglycemia Lisinopril (Zestril) 40 mg PO DAILY [facility] Last Admin: 07/06/18 08:16 Dose: 40 mg Metformin HCl (Glucophage) 500 mg PO BID[facility] Last Admin: 07/06/18 08:14 Dose: 500 mg Metoprolol Succinate (Toprol Xl) 200 mg PO HS [facility] Last Admin: 07/05/18 22:12 Dose: 200 mg Multivitamins (Multivit, Chewable Sf) 1 tab PO DAILY [facility] Last Admin: 07/06/18 08:22 Dose: 1 tab Polyethylene Glycol (Miralax) 17 gm PO HS [facility] Last Admin: 07/05/18 22:14 Dose: Not Given Sodium Chloride (Flush - Normal Saline) 10 ml IVF PRN PRN PRN Reason: Saline Flush
[2018-07-06] MEDS: Atorvastatin Calcium 40 MG TAB PO SCH (21:16)
[2018-07-06] MEDS: Polyethylene Glycol 3350 17 GM Packet PO SCH (21:17)
[2018-07-07 06:03] LABS: Platelet Count 148 thou/uL (130-400)
[2018-07-07 06:18] LABS: Anion Gap 10 mmol/L (10-20); BUN (Urea Nitrogen) 14 mg/dL (8.4-25.7); Calc. Creatinine Clearance 141 mL/min (70-130); Calcium 9.2 mg/dL (7.8-10.44); Carbon Dioxide 31 mmol/L (23-31); Chloride 102 mmol/L (98-107); Estimated GFR-MDRD 90; Glucose 129 mg/dL (80-115); Potassium 3.3 mmol/L (3.5-5.1); Sodium 140 mmol/L (136-145)
[2018-07-07] MEDS: metFORMIN 500 MG TAB PO SCH ×2 (09:17→17:27)
[2018-07-07] MEDS: Potassium Chloride 20 MEQ TAB PO SCH ×2 (09:17→17:27)
[2018-07-07] MEDS: Amlodipine 5 MG TAB PO SCH ×2 (09:17→20:46)
[2018-07-07] MEDS: Aggrenox 200-25mg CAP PO SCH ×2 (09:18→20:46)
[2018-07-07] MEDS: Furosemide 40 MG TAB PO SCH (09:18)
[2018-07-07] MEDS: Lisinopril 20 MG TAB PO SCH (09:18)
[2018-07-07] MEDS: Enoxaparin Sodium 40 MG/0.4 ML SYRINGE SC SCH (09:18)
[2018-07-07] MEDS: Multivit, Chewable SF 1 TAB PO SCH (09:18)
--- NOTE | 2018-07-07 09:29 | PDOC.PN ---
- Subjective Encounter Start Date: 07/07/18 Encounter Start Time: 09:27 Patient seen and examined for Acute CVA. Left side weakness improving. No new complaints. No overnight events - Objective Resuscitation Status - Order Detail: 06/29/18 12:40 Resuscitation Status Routine Resuscitation Status: FULL: Full Resuscitation Discussed with: patient REESE Reviewed: Yes Vital Signs & Weight: Vital Signs (12 hours) Temp Pulse Resp BP BP Pulse Ox 07/07/18 09:18 126/87 07/07/18 09:17 72 147/89 H 07/07/18 07:56 97.8 F 73 20 147/89 H 95 07/07/18 04:00 97.5 F L 81 19 151/88 H 97 07/07/18 00:00 97.9 F 77 19 145/87 H 95 Weight Weight 257 lb 15.053 oz I&O: 07/06/18 07/07/18 07/08/18 06:59 06:59 06:59 Intake Total 1770 1730 Output Total 1670 2400 300 Balance 100 -670 -300 Result Diagrams: 07/07/18 05:25 07/07/18 05:25 EKG Reviewed by me: Yes (Tele SR) Phys Exam - Physical Examination Constitutional: NAD Respiratory: no wheezing, no rhonchi Cardiovascular: RRR, no rub Gastrointestinal: soft, non-tender, positive bowel sounds Musculoskeletal: no edema Dx/Plan - Plan DVT proph w/lovenox, DVT proph w/SCDs IMPRESSION: 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 Hypokalemia HTN HLD DM2 Obesity BMI 32.2 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 PLAN: Replace Potassium Cont Aggrenox/Toprol/Amlodipine Stable for dc Pending insurance approval Review of Systems - Review of Systems Constitutional: negative: fever, chills, sweats, weakness, malaise, other Respiratory: negative: Cough, Dry, Shortness of Breath, Hemoptysis, SOB with Excertion, Pleuritic Pain, Sputum, Wheezing Cardiovascular: negative: chest pain, palpitations, orthopnea, paroxysmal nocturnal dyspnea, edema, light headedness, other Gastrointestinal: negative: Nausea, Vomiting, Abdominal Pain, Diarrhea, Constipation, Melena, Hematochezia, Other Genitourinary: negative: Dysuria, Frequency, Incontinence, Hematuria, Retention , Other - Medications/Allergies Allergies/Adverse Reactions: Allergies Allergy/AdvReac Type Severity Reaction Status Date / Time No Known Allergies Allergy Verified 06/29/18 18:08 Medications: Current Medications Acetaminophen (Tylenol) 650 mg PO Q4H PRN PRN Reason: Headache/Fever/Mild Pain (1-3) Last Admin: 07/04/18 15:16 Dose: 650 mg Amlodipine Besylate (Norvasc) 5 mg PO BID [facility] Last Admin: 07/07/18 09:17 Dose: 5 mg Atorvastatin Calcium (Lipitor) 40 mg PO [facility] Last Admin: 07/06/18 21:16 Dose: 40 mg Bisacodyl (Dulcolax) 10 mg PO DAILYPRN PRN PRN Reason: Constipation Last Admin: 07/01/18 13:08 Dose: 10 mg Dextrose/Water (Dextrose 50%) 25 gm SLOW IVP PRN PRN PRN Reason: Hypoglycemia Diphenhydramine HCl (Benadryl) 25 mg PO Q6HR PRN PRN Reason: Allergies Dipyridamole/Aspirin (Aggrenox) 1 cap PO BID [facility] Last Admin: 07/07/18 09:18 Dose: 1 cap Enoxaparin Sodium (Lovenox) 40 mg SC 0900 [facility] Last Admin: 07/07/18 09:18 Dose: 40 mg Furosemide (Lasix) 40 mg PO DAILY [facility] Last Admin: 07/07/18 09:18 Dose: 40 mg Glucagon (Glucagon) 1 mg IM PRN PRN PRN Reason: Hypoglycemia Dextrose/Water (D5w) 1,000 mls @ 0 mls/hr IV .Q0M PRN PRN Reason: Hypoglycemia Lisinopril (Zestril) 40 mg PO DAILY [facility] Last Admin: 07/07/18 09:18 Dose: 40 mg Metformin HCl (Glucophage) 500 mg PO BID[facility] Last Admin: 07/07/18 09:17 Dose: 500 mg Metoprolol Succinate (Toprol Xl) 200 mg PO [facility] Last Admin: 07/06/18 21:16 Dose: 200 mg Multivitamins (Multivit, Chewable Sf) 1 tab PO DAILY [facility] Last Admin: 07/07/18 09:18 Dose: 1 tab Polyethylene Glycol (Miralax) 17 gm PO [facility] Last Admin: 07/06/18 21:17 Dose: Not Given Potassium Chloride (K-Dur) 20 meq PO BID-[facility] Stop: 07/07/18 17:01 Last Admin: 07/07/18 09:17 Dose: 20 meq Sodium Chloride (Flush - Normal Saline) 10 ml IVF PRN PRN PRN Reason: Saline Flush
[2018-07-07] MEDS: Atorvastatin Calcium 40 MG TAB PO SCH (20:46)
[2018-07-07] MEDS: diphenhydrAMINE 25 MG CAP PO PRN (20:46)
[2018-07-07] MEDS: Polyethylene Glycol 3350 17 GM Packet PO SCH (21:29)
[2018-07-08] MEDS: Enoxaparin Sodium 40 MG/0.4 ML SYRINGE SC SCH (09:17)
[2018-07-08] MEDS: Aggrenox 200-25mg CAP PO SCH ×2 (09:17→21:04)
[2018-07-08] MEDS: metFORMIN 500 MG TAB PO SCH ×2 (09:17→17:47)
[2018-07-08] MEDS: Multivit, Chewable SF 1 TAB PO SCH (09:18)
[2018-07-08] MEDS: Lisinopril 20 MG TAB PO SCH (09:18)
[2018-07-08] MEDS: Furosemide 40 MG TAB PO SCH (09:18)
[2018-07-08] MEDS: Amlodipine 5 MG TAB PO SCH ×2 (09:18→21:04)
--- NOTE | 2018-07-08 13:25 | PDOC.PN ---
- Subjective Encounter Start Date: 07/08/18 Encounter Start Time: 13:00 Patient seen and examined for Acute CVA. No new focal deficits. Left sided weakness improving. Still has problems with balance and steps. No new complaints. No overnight events - Objective Resuscitation Status - Order Detail: 06/29/18 12:40 Resuscitation Status Routine Resuscitation Status: FULL: Full Resuscitation Discussed with: patient MAR Reviewed: Yes Vital Signs & Weight: Vital Signs (12 hours) Temp Pulse Pulse Pulse Resp BP BP 07/08/18 11:37 98.5 F 84 16 07/08/18 11:10 84 81 130/80 134/84 07/08/18 09:18 75 07/08/18 08:00 07/08/18 07:41 98.4 F 75 16 07/08/18 03:58 98.2 F 93 19 BP Pulse Ox 07/08/18 11:37 134/84 93 L 07/08/18 11:10 07/08/18 09:18 07/08/18 08:00 95 07/08/18 07:41 140/89 95 07/08/18 03:58 137/99 H 98 Weight Weight 257 lb 15.053 oz I&O: 07/07/18 07/08/18 07/09/18 06:59 06:59 06:59 Intake Total 1730 2000 500 Output Total 2400 3110 1200 Balance -670 -1110 -700 Result Diagrams: 07/07/18 05:25 07/07/18 05:25 EKG Reviewed by me: Yes (Tele SR) Phys Exam - Physical Examination Constitutional: NAD Respiratory: no wheezing, no rhonchi Cardiovascular: RRR, no rub Gastrointestinal: soft, positive bowel sounds Musculoskeletal: no edema Neurological: moves all 4 limbs Left sided power 4/5 Psychiatric: A&O x 3 Dx/Plan - Plan DVT proph w/SCDs IMPRESSION: 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 Hypokalemia - replaced HTN HLD DM2 Obesity BMI 32.2 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 PLAN: Cont Aggrenox/Toprol/Amlodipine Stable for dc Pending insurance approval Review of Systems - Review of Systems Respiratory: negative: Cough, Dry, Shortness of Breath, Hemoptysis, SOB with Excertion, Pleuritic Pain, Sputum, Wheezing Cardiovascular: negative: chest pain, palpitations, orthopnea, paroxysmal nocturnal dyspnea, edema, light headedness, other - Medications/Allergies Allergies/Adverse Reactions: Allergies Allergy/AdvReac Type Severity Reaction Status Date / Time No Known Allergies Allergy Verified 06/29/18 18:08 Medications: Current Medications Acetaminophen (Tylenol) 650 mg PO Q4H PRN PRN Reason: Headache/Fever/Mild Pain (1-3) Last Admin: 07/04/18 15:16 Dose: 650 mg Amlodipine Besylate (Norvasc) 5 mg PO BID [facility] Last Admin: 07/08/18 09:18 Dose: 5 mg Atorvastatin Calcium (Lipitor) 40 mg PO HS [facility] Last Admin: 07/07/18 20:46 Dose: 40 mg Bisacodyl (Dulcolax) 10 mg PO DAILYPRN PRN PRN Reason: Constipation Last Admin: 07/01/18 13:08 Dose: 10 mg Dextrose/Water (Dextrose 50%) 25 gm SLOW IVP PRN PRN PRN Reason: Hypoglycemia Diphenhydramine HCl (Benadryl) 25 mg PO Q6HR PRN PRN Reason: Allergies Last Admin: 07/07/18 20:46 Dose: 25 mg Dipyridamole/Aspirin (Aggrenox) 1 cap PO BID [facility] Last Admin: 07/08/18 09:17 Dose: 1 cap Enoxaparin Sodium (Lovenox) 40 mg SC 0900 [facility] Last Admin: 07/08/18 09:17 Dose: 40 mg Furosemide (Lasix) 40 mg PO DAILY [facility] Last Admin: 07/08/18 09:18 Dose: 40 mg Glucagon (Glucagon) 1 mg IM PRN PRN PRN Reason: Hypoglycemia Dextrose/Water (D5w) 1,000 mls @ 0 mls/hr IV .Q0M PRN PRN Reason: Hypoglycemia Lisinopril (Zestril) 40 mg PO DAILY [facility] Last Admin: 07/08/18 09:18 Dose: 40 mg Metformin HCl (Glucophage) 500 mg PO BID-[facility] Last Admin: 07/08/18 09:17 Dose: 500 mg Metoprolol Succinate (Toprol Xl) 200 mg PO [facility] Last Admin: 07/07/18 20:46 Dose: 200 mg Multivitamins (Multivit, Chewable Sf) 1 tab PO DAILY [facility] Last Admin: 07/08/18 09:18 Dose: 1 tab Polyethylene Glycol (Miralax) 17 gm PO HS [facility] Last Admin: 07/07/18 21:29 Dose: Not Given Sodium Chloride (Flush - Normal Saline) 10 ml IVF PRN PRN PRN Reason: Saline Flush
[2018-07-08] MEDS: Polyethylene Glycol 3350 17 GM Packet PO SCH (21:03)
[2018-07-08] MEDS: diphenhydrAMINE 25 MG CAP PO PRN (21:04)
[2018-07-08] MEDS: Atorvastatin Calcium 40 MG TAB PO SCH (21:04)
[2018-07-09] MEDS: metFORMIN 500 MG TAB PO SCH ×2 (08:51→16:04)
[2018-07-09] MEDS: Multivit, Chewable SF 1 TAB PO SCH (08:51)
[2018-07-09] MEDS: Enoxaparin Sodium 40 MG/0.4 ML SYRINGE SC SCH (08:51)
[2018-07-09] MEDS: Lisinopril 20 MG TAB PO SCH (08:52)
[2018-07-09] MEDS: Aggrenox 200-25mg CAP PO SCH ×2 (08:52→21:02)
[2018-07-09] MEDS: Furosemide 40 MG TAB PO SCH (08:54)
[2018-07-09] MEDS: Amlodipine 5 MG TAB PO SCH ×2 (08:54→21:02)
[2018-07-09] MEDS ORDERED: Hydrocortisone 1% Cream 30 GM TUBE TOP PRN (10:20)
[2018-07-09] MEDS: diphenhydrAMINE 30 GM TUBE TOP PRN ×2 (12:31→16:49)
--- NOTE | 2018-07-09 20:36 | PDOC.PN ---
- Subjective Encounter Start Date: 07/09/18 Encounter Start Time: 12:00 Patient seen and examined for Acute CVA. No new complaints. No overnight events - Objective Resuscitation Status - Order Detail: 06/29/18 12:40 Resuscitation Status Routine Resuscitation Status: FULL: Full Resuscitation Discussed with: patient REESE Reviewed: Yes Vital Signs & Weight: Vital Signs (12 hours) Temp Pulse Pulse Pulse Resp BP BP 07/09/18 19:44 98.1 F 84 16 07/09/18 15:42 98.2 F 80 18 07/09/18 11:58 98.0 F 78 16 07/09/18 10:00 84 84 153/82 H 07/09/18 08:54 75 151/92 H 07/09/18 08:52 151/92 H 07/09/18 08:45 BP BP Pulse Ox 07/09/18 19:44 139/87 96 07/09/18 15:42 129/67 94 L 07/09/18 11:58 127/86 96 07/09/18 10:00 137/83 07/09/18 08:54 07/09/18 08:52 07/09/18 08:45 95 Weight Admit Weight 257 lb Weight 257 lb 15.053 oz I&O: 07/08/18 07/09/18 07/10/18 06:59 06:59 06:59 Intake Total 19996 Output Total 3110 4125 1960 Balance -1109 776 Result Diagrams: 07/07/18 05:25 07/07/18 05:25 Phys Exam - Physical Examination Constitutional: NAD Respiratory: no wheezing, no rhonchi Cardiovascular: RRR, no rub Gastrointestinal: soft, positive bowel sounds Musculoskeletal: no edema Dx/Plan - Plan DVT proph w/lovenox, DVT proph w/SCDs IMPRESSION: 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 - on Aggrenox Hypokalemia - replaced HTN - on Toprol and Amlodipine HLD DM2 Obesity BMI 32.2 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 PLAN: Stable for dc Pending insurance approval for Inpt Rehab Review of Systems - Review of Systems Cardiovascular: negative: chest pain, palpitations, orthopnea, paroxysmal nocturnal dyspnea, edema, light headedness, other Gastrointestinal: negative: Nausea, Vomiting, Abdominal Pain, Diarrhea, Constipation, Melena, Hematochezia, Other - Medications/Allergies Allergies/Adverse Reactions: Allergies Allergy/AdvReac Type Severity Reaction Status Date / Time No Known Allergies Allergy Verified 06/29/18 18:08 Medications: Current Medications Acetaminophen (Tylenol) 650 mg PO Q4H PRN PRN Reason: Headache/Fever/Mild Pain (1-3) Last Admin: 07/04/18 15:16 Dose: 650 mg Amlodipine Besylate (Norvasc) 5 mg PO BID [facility] Last Admin: 07/09/18 08:54 Dose: 5 mg Atorvastatin Calcium (Lipitor) 40 mg PO [facility] Last Admin: 07/08/18 21:04 Dose: 40 mg Bisacodyl (Dulcolax) 10 mg PO DAILYPRN PRN PRN Reason: Constipation Last Admin: 07/01/18 13:08 Dose: 10 mg Dextrose/Water (Dextrose 50%) 25 gm SLOW IVP PRN PRN PRN Reason: Hypoglycemia Diphenhydramine HCl (Benadryl) 25 mg PO Q6HR PRN PRN Reason: Allergies Last Admin: 07/08/18 21:04 Dose: 25 mg Dipyridamole/Aspirin (Aggrenox) 1 cap PO BID [facility] Last Admin: 07/09/18 08:52 Dose: 1 cap Enoxaparin Sodium (Lovenox) 40 mg SC 0900 [facility] Last Admin: 07/09/18 08:51 Dose: 40 mg Furosemide (Lasix) 40 mg PO DAILY [facility] Last Admin: 07/09/18 08:54 Dose: 40 mg Glucagon (Glucagon) 1 mg IM PRN PRN PRN Reason: Hypoglycemia Hydrocortisone/Aloe (Hydrocortisone 1% Cream) 0 gm TOP QID PRN PRN Reason: skin irritation Dextrose/Water (D5w) 1,000 mls @ 0 mls/hr IV .Q0M PRN PRN Reason: Hypoglycemia Lisinopril (Zestril) 40 mg PO DAILY [facility] Last Admin: 07/09/18 08:52 Dose: 40 mg Metformin HCl (Glucophage) 500 mg PO BID-[facility] Last Admin: 07/09/18 16:04 Dose: 500 mg Metoprolol Succinate (Toprol Xl) 200 mg PO [facility] Last Admin: 07/08/18 21:04 Dose: 200 mg Multivitamins (Multivit, Chewable Sf) 1 tab PO DAILY [facility] Last Admin: 07/09/18 08:51 Dose: 1 tab Polyethylene Glycol (Miralax) 17 gm PO HS [facility] Last Admin: 07/08/18 21:03 Dose: Not Given Sodium Chloride (Flush - Normal Saline) 10 ml IVF PRN PRN PRN Reason: Saline Flush Zinc Acetate/Diphenhydramine (Benadryl 2% Cream) 0 gm TOP QID PRN PRN Reason: skin irritation Last Admin: 07/09/18 16:49 Dose: 3 applic
[2018-07-09] MEDS: Atorvastatin Calcium 40 MG TAB PO SCH (21:02)
[2018-07-09] MEDS: Polyethylene Glycol 3350 17 GM Packet PO SCH (21:03)
[2018-07-10] MEDS: metFORMIN 500 MG TAB PO SCH ×2 (08:37→17:35)
[2018-07-10] MEDS: Furosemide 40 MG TAB PO SCH (08:38)
[2018-07-10] MEDS: Aggrenox 200-25mg CAP PO SCH ×2 (08:38→20:55)
[2018-07-10] MEDS: Multivit, Chewable SF 1 TAB PO SCH (08:40)
[2018-07-10] MEDS: Lisinopril 20 MG TAB PO SCH (08:42)
[2018-07-10] MEDS: Amlodipine 5 MG TAB PO SCH ×2 (08:42→20:55)
[2018-07-10] MEDS: Enoxaparin Sodium 40 MG/0.4 ML SYRINGE SC SCH (08:43)
[2018-07-10] MEDS: diphenhydrAMINE 30 GM TUBE TOP PRN (10:17)
--- NOTE | 2018-07-10 10:57 | PDOC.PN ---
- Subjective Encounter Start Date: 07/10/18 Encounter Start Time: 10:56 Patient seen and examined for Acute CVA. Left sided strength improving. No new complaints. No overnight events - Objective Resuscitation Status - Order Detail: 06/29/18 12:40 Resuscitation Status Routine Resuscitation Status: FULL: Full Resuscitation Discussed with: patient Vital Signs & Weight: Vital Signs (12 hours) Temp Pulse Resp BP BP Pulse Ox 07/10/18 08:45 97.7 F 78 16 145/91 H 94 L 07/10/18 08:42 78 145/91 H 07/10/18 04:00 97.7 F 74 16 132/83 94 L 07/10/18 00:00 97.4 F L 77 16 136/94 H 98 Weight Admit Weight 257 lb Weight 257 lb 15.053 oz I&O: 07/09/18 07/10/18 07/11/18 06:59 06:59 06:59 Intake Total 2100 3736 Output Total 4125 3110 Balance -2024 626 Result Diagrams: 07/07/18 05:25 07/07/18 05:25 Phys Exam - Physical Examination Constitutional: NAD Respiratory: no wheezing, no rhonchi Cardiovascular: RRR, no rub Gastrointestinal: soft, non-tender, positive bowel sounds Musculoskeletal: no edema Neurological: moves all 4 limbs Dx/Plan - Plan DVT proph w/SCDs IMPRESSION: 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 - on Aggrenox HTN HLD DM2 Obesity BMI 32.2 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 Hypokalemia - replaced PLAN: Cont Toprol and Amlodipine Pending insurance approval for Inpt Rehab Stable for dc Review of Systems - Review of Systems Respiratory: negative: Cough, Dry, Shortness of Breath, Hemoptysis, SOB with Excertion, Pleuritic Pain, Sputum, Wheezing Cardiovascular: negative: chest pain, palpitations, orthopnea, paroxysmal nocturnal dyspnea, edema, light headedness, other - Medications/Allergies Allergies/Adverse Reactions: Allergies Allergy/AdvReac Type Severity Reaction Status Date / Time No Known Allergies Allergy Verified 06/29/18 18:08 Medications: Current Medications Acetaminophen (Tylenol) 650 mg PO Q4H PRN PRN Reason: Headache/Fever/Mild Pain (1-3) Last Admin: 07/04/18 15:16 Dose: 650 mg Amlodipine Besylate (Norvasc) 5 mg PO BID [facility] Last Admin: 07/10/18 08:42 Dose: 5 mg Atorvastatin Calcium (Lipitor) 40 mg PO HS [facility] Last Admin: 07/09/18 21:02 Dose: 40 mg Bisacodyl (Dulcolax) 10 mg PO DAILYPRN PRN PRN Reason: Constipation Last Admin: 07/01/18 13:08 Dose: 10 mg Dextrose/Water (Dextrose 50%) 25 gm SLOW IVP PRN PRN PRN Reason: Hypoglycemia Diphenhydramine HCl (Benadryl) 25 mg PO Q6HR PRN PRN Reason: Allergies Last Admin: 07/08/18 21:04 Dose: 25 mg Dipyridamole/Aspirin (Aggrenox) 1 cap PO BID [facility] Last Admin: 07/10/18 08:38 Dose: 1 cap Enoxaparin Sodium (Lovenox) 40 mg SC 0900 [facility] Last Admin: 07/10/18 08:43 Dose: 40 mg Furosemide (Lasix) 40 mg PO DAILY [facility] Last Admin: 07/10/18 08:38 Dose: 40 mg Glucagon (Glucagon) 1 mg IM PRN PRN PRN Reason: Hypoglycemia Hydrocortisone/Aloe (Hydrocortisone 1% Cream) 0 gm TOP QID PRN PRN Reason: skin irritation Dextrose/Water (D5w) 1,000 mls @ 0 mls/hr IV .Q0M PRN PRN Reason: Hypoglycemia Lisinopril (Zestril) 40 mg PO DAILY [facility] Last Admin: 07/10/18 08:42 Dose: 40 mg Metformin HCl (Glucophage) 500 mg PO BID-[facility] Last Admin: 07/10/18 08:37 Dose: 500 mg Metoprolol Succinate (Toprol Xl) [address] [facility] Last Admin: 07/09/18 21:01 Dose: 200 mg Multivitamins (Multivit, Chewable Sf) 1 tab PO DAILY [facility] Last Admin: 07/10/18 08:40 Dose: 1 tab Polyethylene Glycol (Miralax) 17 gm PO [facility] Last Admin: 07/09/18 21:03 Dose: Not Given Sodium Chloride (Flush - Normal Saline) 10 ml IVF PRN PRN PRN Reason: Saline Flush Zinc Acetate/Diphenhydramine (Benadryl 2% Cream) 0 gm TOP QID PRN PRN Reason: skin irritation Last Admin: 07/10/18 10:17 Dose: 3 applic
[2018-07-10] MEDS: Atorvastatin Calcium 40 MG TAB PO SCH (20:55)
[2018-07-10] MEDS: Polyethylene Glycol 3350 17 GM Packet PO SCH (20:57)
[2018-07-11] MEDS: Multivit, Chewable SF 1 TAB PO SCH (09:43)
[2018-07-11] MEDS: Aggrenox 200-25mg CAP PO SCH (09:43)
[2018-07-11] MEDS: Lisinopril 20 MG TAB PO SCH (09:44)
[2018-07-11] MEDS: Amlodipine 5 MG TAB PO SCH (09:44)
[2018-07-11] MEDS: Furosemide 40 MG TAB PO SCH (09:44)
[2018-07-11] MEDS: metFORMIN 500 MG TAB PO SCH (09:44)
[2018-07-11] MEDS: Enoxaparin Sodium 40 MG/0.4 ML SYRINGE SC SCH (09:45)
[2018-07-11 11:35] VITALS: BP 142/88; TEMP 97.6
--- NOTE | 2018-07-11 13:23 | DIS ---
DATE OF ADMISSION: 06/29/2018 DATE OF DISCHARGE: 07/11/2018 DISCHARGE DISPOSITION: Home with outpatient physical therapy and occupational therapy. The patient was seen on the day of discharge. Denies any new complaints. The patient is ambulating in the hallway with the help of a walker. BRIEF HOSPITAL COURSE: The patient is a 67-year-old male with diabetes mellitus type 2, hypertension, and dyslipidemia, presented to the hospital with left-sided numbness and weakness. His workup was consistent with acute CVA. Initial CT scan of the brain was negative for acute findings. He underwent MRI of the brain on 30 July, that was consistent with acute infarction in the superior aspect of the right basal ganglia. He also had MRI of the cervical spine without contrast ordered by the admitting physician that showed degenerative changes in the cervical spine. He was evaluated by Neurology. Neurology recommended Aggrenox. He was seen by stroke team including physical therapy and occupational therapy. The patient has been waiting for insurance approval for over a week. The patient is currently ambulating in the hallway with the help of a walker and he feels comfortable going home. Fall precaution was emphasized. He was advised to return to emergency room if he develops any new weakness or numbness. He will also benefit from outpatient Neurosurgery evaluation for degenerative changes of the cervical spine. The patient agreed with current plan of care. FINAL DIAGNOSES: 1. 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 The patient has been started on Aggrenox. 2. Hypertension. 3. Hyperlipidemia. 4. Diabetes mellitus, type 2. 5. Obesity with a BMI of 32.2. 6. History of Mohan palsy. 7. Hypokalemia, replaced. PLAN: Plan of care was discussed with the patient in detail. He stated understanding. DISCHARGE MEDICATIONS: 1. Aggrenox 1 capsule b.i.d. 2. Lipitor 40 mg q.h.s. 3. Amlodipine 5 mg b.i.d. 4. MiraLAX q.h.s. 5. Multivitamin one tablet daily. 6. Toprol-XL 200 mg q.h.s. 7. Metformin 500 mg b.i.d. 8. Lisinopril 40 mg daily. 9. Lasix 20 mg daily. 10. Benadryl as needed. Job ID: [id number]
== END 2018-07-11 15:45 | disposition home or self-care (01) | DRG 65 ==
LOC: ERS 09:22 → EEVIPCON 11:28 → ERHOLD 11:28 → 2SE 17:44
PROVIDERS: ADMIT Internal Medicine; ATTEND Internal Medicine
DX: I63.81 Other cerebral infarction due to occlusion or stenosis of small artery (principal); G81.94 Hemiplegia, unspecified affecting left nondominant side; E11.9 Type 2 diabetes mellitus without complications; G51.0 Bell's palsy; I10 Essential (primary) hypertension; E78.5 Hyperlipidemia, unspecified; E66.9 Obesity, unspecified; Z68.32 Body mass index [BMI] 32.0-32.9, adult; E87.6 Hypokalemia; M50.30 Other cervical disc degeneration, unspecified cervical region; Z79.84 Long term (current) use of oral hypoglycemic drugs; Z79.82 Long term (current) use of aspirin; Z79.899 Other long term (current) drug therapy; Z98.890 Other specified postprocedural states
CPT/HCPCS: 36415; 36416; 70450; 70551; 72141; 80048; 80053; 80061; 84484; 85014; 85018; 85025; 85027; 85049; 85610; 85730; 93880; 99285; J1650; Q0163